=== PATIENT | female | born 1935 | race Two or more races ===

== ENCOUNTER 2019-06-17 23:27 | Inpatient (IN) | payer OTHER, MEDICAID ==
[~2019-06-17] VITALS: Ht 147.3 cm; Wt 47.6 kg
[2019-06-18 00:23] LABS: Basophils # (auto) 0 10 ^3/uL (0-0.2); Basophils % (auto) 0.9 % (0.0-2.0); Eosinophils # (auto) 0.1 10 ^3/uL (0-0.8); Eosinophils % (auto) 3.1 % (0.0-7.0); Hematocrit 45.8 % (36.0-46.0); Hemoglobin 15.6 g/dL (12.2-16.2); Lymphocytes # (auto) 1.2 10 ^3/uL (0.4-5.4); Lymphocytes % (auto) 29.6 % (10.0-50.0); Mean Corpuscular Hemoglobin 31.7 pg (28.0-32.0); Monocytes # (auto) 0.3 10 ^3/uL (0-1.3); Monocytes % (auto) 7.4 % (0.0-12.0); Neutrophils # (auto) 2.5 10 ^3/uL (1.6-8.6); Nucleated Red Blood Cells % 0.1 %; Platelet Count (auto) 168 10^3/uL (140-450); Red Blood Cells 4.93 10^6/uL (4.0-5.20); Red Cell Distribution Width 13.1 % (11.8-14.3); White Blood Cell 4.2 10^3/uL (4.4-10.8)
[2019-06-18 00:38] LABS: INR 1.01 (0.9-1.15); Partial Thromboplastin Time 26.2 sec (23.64-32.05)
[2019-06-18 00:41] LABS: Albumin 4.4 g/dL (3.4-5.0); BUN/Creatinine Ratio 18.3; Calcium 9.3 mg/dL (8.5-10.1); Potassium 3.9 mmol/L (3.5-5.1)
[2019-06-18 00:46] LABS: Bilirubin, Total 0.7 mg/dL (0.2-1.0); Total Protein 8.4 g/dL (6.4-8.2)
[2019-06-18 01:00] LABS: Urine WBC None Seen /hpf (0 - 5)
[2019-06-18 01:15] LABS: Urine Bacteria FEW /hpf (None Seen); Urine Blood 2+ /uL (Negative); Urine Mucus FEW (None Seen); Urine Specific Gravity 1.021 (1.001-1.035)
[2019-06-18] MEDS ORDERED: ACETAMINOPHEN 500 MG TAB PO PRN (10:00)
[2019-06-18] MEDS ORDERED: SODIUM CHLORIDE 0.9% 1,000 ML IV ONE (10:00)
[2019-06-18] MEDS ORDERED: MORPHINE SULF INJ 2 MG/ML SYRINGE 1ML IV PRN ×2 (10:00)
[2019-06-18] MEDS ORDERED: FAMOTIDINE 20 MG TAB PO SCH (10:00)
[2019-06-18] MEDS ORDERED: ONDANSETRON HCL 4 MG/2 ML VIAL IV PRN (10:00)
[2019-06-18] MEDS ORDERED: NITROGLYCERIN 0.4 MG SL TAB SL PRN (10:00)
[2019-06-18] MEDS ORDERED: HYDROcodone-ACET 5/325MG TAB PO PRN (10:00)
[2019-06-18 10:36] LABS: Cholesterol 211 mg/dL (< 200); HDL Cholesterol 89 mg/dL (40-59); LDL Cholesterol 112 mg/dL (< 100); Triglycerides 96 mg/dL (< 150)
--- NOTE | 2019-06-18 10:45 | NUR ---
PT ADMITTED TO FLOOR FROM E.R.. PT REPORTS NO PAIN AT THIS TIME. PT ORIENTED TO UNIT. CALLED DARON RN TO TRANSLATE, PT CITIZ[place]. DARON REPORTS PT IS A AND 0 X 4, LAST BM 06/16. BED ALRM ON, SIDE RAILS UP X4. BED IN LOWEST LOCKED POSITION. NO REPORT GIVEN FROM E.R.. SANCHES HAS NO STAT LOCK. SANCHES SECURED WITH STAT LOCK. 200 MLS CLEAR YELLOW URINE NOTED. WILL CONTINUE TO MONITOR.
[2019-06-18] MEDS: FAMOTIDINE 20 MG TAB PO SCH ×2 (10:47→14:38)
[2019-06-18 12:00] VITALS: BP 153/79
--- NOTE | 2019-06-18 12:44 | NUR ---
CALLED JERZY, PATIENT DAUGHTER FOR ADMISSION INFORMATION. SHE REPORTS SHE WILL BRING IN LIST OF PATIENT HOME MEDICATIONS.
[2019-06-18 15:03] LABS: Folate (Folic Acid) > 24.00 ng/mL (5.38-24)
[2019-06-18 16:50] VITALS: BP 136/59
--- NOTE | 2019-06-18 17:09 | NUR ---
BILINGUAL ADMINISTRATIVE ASSISTANT REPORTS HR 56 BPM, REASSESSED, HR 67 BPM, PT RESTING IN BED, NO DISTRESS NOTED.
--- NOTE | 2019-06-18 19:30 | NUR ---
Opening Shift Note Assumed care of patient, awake and alert. No S/S of distress/SOB or pain. The bed is locked in the lowest position with the call light within reach. Instructed on POC and to call for assist PRN, will continue to monitor for changes Q1hr and PRN.
--- NOTE | 2019-06-18 21:30 | NUR ---
SCDs APPLIED TO LOWER EXTREMITIES BILATERALLY. PATIENT TOLERATED IT WELL.
[2019-06-18 22:05] VITALS: BP 145/73
[2019-06-19] MEDS ORDERED: PAR20T PO (01:49)
[2019-06-19] MEDS ORDERED: LUBI24CA6 PO (01:49)
[2019-06-19] MEDS ORDERED: CELE200C PO (01:49)
[2019-06-19] MEDS ORDERED: HYDR-4833 PO (01:49)
[2019-06-19] MEDS ORDERED: GABA300C10 PO (01:49)
[2019-06-19] MEDS ORDERED: ATOR10TA PO (01:49)
[2019-06-19] MEDS ORDERED: CARB1TAB44 PO (01:49)
[2019-06-19] MEDS ORDERED: LOSA-39 PO (01:49)
[2019-06-19 04:57] VITALS: BP 145/68
[2019-06-19 09:00] VITALS: BP 138/82
--- NOTE | 2019-06-19 11:50 | NUR ---
DR CEJA SAW PATIENT WITH RN AGRICULTURAL PRODUCE WASHER. NEW ORDERS FOR PHYSICAL THERAPY AND MRI.
[2019-06-19] MEDS ORDERED: LORazepam 2MG/ML-1ML VIAL IV PRN (12:00)
[2019-06-19] MEDS ORDERED: LOSARTAN POTASSIUM 50 MG TAB PO ONE (12:00)
--- NOTE | 2019-06-19 12:10 | NUR ---
CALLED PBX AND PAGED PHYSICAL THERAPY TO PATIENT ROOM.
--- NOTE | 2019-06-19 12:50 | NUR ---
BASELINE SPOKE WITH DAUGHTER ABOUT PATIENT'S BASELINE. DAUGHTER REPORTS PT HAS NO HX OF ALZHEIMER'S OR DEMENTIA AND IS USUALLY NOT CONFUSED AT HOME. DAUGHTER REPORTS PT IS USUALLY ABLE TO WALK AT HOME BY HERSELF WITH NO ASSISTIVE DEVICES.
[2019-06-19 13:00] VITALS: BP 148/64
--- NOTE | 2019-06-19 13:19 | NUR ---
SPOKE WITH [facility], MRI. [facility] REPORTS THEY ARE UNABLE TO DO MRI FOR PATIENT. PT HAS WIRES STILL INSERTED IN NECK FROM PREVIOUS NECK SURGERY. CALLED PBX AND PAGED DR CEJA TO NOTIFY .
--- NOTE | 2019-06-19 16:00 | NUR ---
PHYSICAL THERAPY PT CAME AND WORKED WITH PATIENT. THEY REPORT SHE WALKED WITH WALKER AND,"DID WELL."
[2019-06-19 17:00] VITALS: BP 140/84
--- NOTE | 2019-06-19 19:45 | NUR ---
Opening Shift Note Assumed care of patient, awake and alert. No S/S of distress/SOB or pain. Patient's family is present at bedside. Per family, patient is not at baseline. Per son in law, the patient is usually more talkative and active. Family and patient have both been instructed on POC and to call for assist PRN, will continue to monitor for changes Q1hr and PRN.
--- NOTE | 2019-06-19 21:25 | NUR ---
Patient ambulated to the bathroom with assistance. Patient tolerated ambulation well. patient denies any pain.
[2019-06-19 22:00] VITALS: BP 147/65
[2019-06-20 05:00] VITALS: BP 127/76
[2019-06-20 05:56] LABS: Basophils # (auto) 0 10 ^3/uL (0-0.2); Basophils % (auto) 0.4 % (0.0-2.0); Eosinophils # (auto) 0.1 10 ^3/uL (0-0.8); Eosinophils % (auto) 2.6 % (0.0-7.0); Hematocrit 40.8 % (36.0-46.0); Hemoglobin 14.2 g/dL (12.2-16.2); Lymphocytes # (auto) 1.3 10 ^3/uL (0.4-5.4); Mean Corpuscular Hemoglobin 31.9 pg (28.0-32.0); Mean Corpuscular Hgb Conc. 34.7 g/dL (32.0-36.0); Mean Corpuscular Volume 91.8 fL (80.0-100.0); Monocytes # (auto) 0.4 10 ^3/uL (0-1.3); Monocytes % (auto) 8.6 % (0.0-12.0); Neutrophils % (auto) 61.4 % (37.0-80.0); Nucleated Red Blood Cells % 0.1 %; Platelet Count (auto) 164 10^3/uL (140-450); Red Blood Cells 4.44 10^6/uL (4.0-5.20); Red Cell Distribution Width 12.9 % (11.8-14.3); White Blood Cell 4.9 10^3/uL (4.4-10.8)
[2019-06-20 06:15] LABS: Calcium 8.8 mg/dL (8.5-10.1); Potassium 3.4 mmol/L (3.5-5.1)
[2019-06-20 06:17] LABS: BUN/Creatinine Ratio 29.2
--- NOTE | 2019-06-20 07:30 | NUR ---
Opening shift note Assumed care of patient. Patient lying down with eyes open. A&O x3. Patient appeared slightly confused. Respirations even and non-labored and without distress. IV flushed, patent and intact. Bilateral hand shellfish processing laborer weak, bilateral lower extremities equal push/pull. No slurred speech noted or facial drooping noted. Assisted patient with meal tray, patient independent with feeding without difficulty swallowing. Bed lowered, locked, with side rails up x2. Will continue to monitor.
[2019-06-20] MEDS ORDERED: LOSARTAN POTASSIUM 50 MG TAB PO SCH (10:00)
[2019-06-20] MEDS: FAMOTIDINE 20 MG TAB PO SCH (10:32)
--- NOTE | 2019-06-20 10:50 | NUR ---
PT evaluation ordered.
[2019-06-20 13:00] VITALS: BP 125/57
[2019-06-20] MEDS ORDERED: POTASSIUM CHL 10 Meq TABLET PO ONE (14:00)
--- NOTE | 2019-06-20 14:30 | NUR ---
Alexander catheter dc'd Order to discontinue Alexander catheter. Alexander dc'd with clean technique following deflation of balloon. Patient tolerated well with no complaints of pain. Continue care.
[2019-06-20 14:34] VITALS: BP 139/70
--- NOTE | 2019-06-20 14:38 | NUR ---
assessment Patient is a 83 year old female who is alert and oriented. jj CLARKE translated for us. Per patient prior to admission patient lived home with family and functioned independently. Patient informed me she was to care for her own ADLs. Per patient she will return home to her prior living arrangements post discharge and family will transport her home. Patient has no DME. Patient may benefit from home health for PT and safety and a fww on discharge. I informed patient she has a right to speak to a transition social worker regarding all care. I informed patient she has a right to participate in any and all discharge planning. Patient does not have a POA and advanced directive. I have offered patient information on POA and advanced directives. I informed the patient the advantages and benefits of having an Advanced Directive. Patient verbalized understanding and agreed to discharge plan. Addendum: 06/20/19 at 1440 by Ching MAE Amended: Links added.
--- NOTE | 2019-06-20 17:45 | NUR ---
Discharge instructions given as ordered. Encourage to follow up with PMD as instructed. All questions and concerns addressed. Patient verbalized understanding. Medication reconciliation form completed and copy given to patient. Home medications held in Pharmacy returned to patient. IV removed with catheter intact, pressure dressing applied. Telemetry unit returned to ICU. Patient taken to vehicle via wheelchair with all personal belongings, accompanied by staff and family member. No distress noted at time of departure.
== END 2019-06-20 17:00 | disposition home or self-care (01) | DRG 93 ==
LOC: ER 23:27 → TELE 23:28 → TELE-WESTW 06-18 11:01
PROVIDERS: ADMIT Nurse Practitioner Acute Care; ATTEND Internal Medicine
DX: G92 Toxic encephalopathy (principal); I10 Essential (primary) hypertension; M81.0 Age-related osteoporosis without current pathological fracture; M16.12 Unilateral primary osteoarthritis, left hip; G20 Parkinson's disease; W18.39XA Other fall on same level, initial encounter; Y93.89 Activity, other specified; Y92.89 Other specified places as the place of occurrence of the external cause; Y99.8 Other external cause status; Z95.1 Presence of aortocoronary bypass graft; Z90.710 Acquired absence of both cervix and uterus
CPT/HCPCS: 36415; 70450; 71045; 72192; 80048; 80053; 80061; 81001; 82306; 82607; 82746; 83735; 83880; 84425; 84443; 84484; 85025; 85610; 85730; 93005; 93306; 93886; 97163; 97530; G0378

== ENCOUNTER 2022-12-08 19:17 | Inpatient (IN) | payer OTHER, MEDICAID ==
[~2022-12-08] VITALS: Ht 139.7 cm; Wt 54.0 kg
[~2022-12-08 19:17] MED LIST: ATOR10TA PO; CARB1TAB44 PO; CELE200C PO; GABA-1250 PO; HYDR-4833 PO; LOSA100T58 PO; LUBI24CA6 PO; PAR20T PO
[2022-12-08 20:25] VITALS: PULSE 64; RESP 14; O2SAT 91
[2022-12-08] MEDS ORDERED: ONDANSETRON HCL 4 MG/2 ML VIAL IV ONE (21:00)
[2022-12-08] MEDS ORDERED: DexAMETHasone SOD PHOS 10MG/1ML VIAL INJ IV ONE (21:00)
[2022-12-08] MEDS ORDERED: MORPHINE SULFATE 4 MG/ML SYR/VIAL IV ONE (21:00)
[2022-12-08] MEDS ORDERED: ALBUTEROL SULF 2.5 MG/0.5ML(0.5%) NEB SOLN NEB ONE (21:00)
[2022-12-08 21:35] LABS: Alanine Aminotransferase 35 U/L (7-40); Albumin 4.3 g/dL (3.2-4.8); Alkaline Phosphatase 49 U/L (46-116); Anion Gap 7.1 (5-15); Aspartate Aminotransferase 28 U/L (13-40); BUN/Creatinine Ratio 14.3 (10.0-20.0); Blood Urea Nitrogen 8 mg/dL (9-23); Calcium 8.9 mg/dL (8.5-10.1); Carbon Dioxide 27.9 mmol/L (20-30); Chloride 104 mmol/L (98-107); Glucose 156 mg/dL (74-106); Potassium 3.8 mmol/L (3.5-5.1); Sodium 139 mmol/L (136-145)
[2022-12-08 21:36] LABS: Bilirubin, Total 0.4 mg/dL (0.2-1.0)
[2022-12-08 21:42] LABS: Basophils # (auto) 0 10 ^3/uL (0-0.2); Basophils % (auto) 0.3 % (0.0-2.0); Eosinophils # (auto) 0 10 ^3/uL (0-0.8); Eosinophils % (auto) 0.7 % (0.0-7.0); Hematocrit 39.5 % (36.0-46.0); Hemoglobin 13.5 g/dL (12.2-16.2); Lymphocytes # (auto) 0.7 10 ^3/uL (0.4-5.4); Lymphocytes % (auto) 10.9 % (10.0-50.0); Mean Corpuscular Hemoglobin 31.9 pg (28.0-32.0); Mean Corpuscular Hgb Conc. 34.2 g/dL (32.0-36.0); Mean Corpuscular Volume 93.4 fL (80.0-100.0); Monocytes # (auto) 0.4 10 ^3/uL (0-1.3); Monocytes % (auto) 5.5 % (0.0-12.0); Neutrophils # (auto) 5.5 10 ^3/uL (1.6-8.6); Neutrophils % (auto) 82.6 % (37.0-80.0); Red Blood Cells 4.23 10^6/uL (4.0-5.20); Red Cell Distribution Width 13.1 % (11.8-14.3); White Blood Cell 6.7 10^3/uL (4.4-10.8)
[2022-12-08] MEDS ORDERED: HYDROcodone-ACET 10/325MG TAB PO ONE (23:30)
[2022-12-09] MEDS ORDERED: MORPHINE SULFATE 4 MG/ML SYR/VIAL IV ONE (03:00)
[2022-12-09] MEDS ORDERED: ONDANSETRON HCL 4 MG/2 ML VIAL IV ONE (03:00)
[2022-12-09] MEDS ORDERED: ACETAMINOPHEN 325 MG TAB PO PRN (05:30)
[2022-12-09] MEDS ORDERED: NITROGLYCERIN 0.4 MG SL TAB SL PRN (05:30)
[2022-12-09] MEDS ORDERED: DOCUSATE SOD 100 MG CAP PO PRN (05:30)
[2022-12-09] MEDS ORDERED: MORPHINE SULFATE INJ 2 MG/ml SYRG IV PRN (05:30)
[2022-12-09] MEDS: SODIUM CHLORIDE 0.9% 1,000 ML IV SCH (05:55)
[2022-12-09] MEDS: HYDROcodone-ACET 5/325MG TAB PO PRN ×2 (05:56→17:02)
[2022-12-09] MEDS: ONDANSETRON HCL 4 MG/2 ML VIAL IV PRN ×2 (07:52→14:36)
[2022-12-09] MEDS: MORPHINE SULFATE INJ 2 MG/ml SYRG IV PRN ×3 (07:53→21:01)
[2022-12-09 07:57] LABS: INR 1.04 (0.9-1.15); Prothrombin Time 10.9 sec (9.3-11.8)
[2022-12-09 08:01] LABS: Basophils # (auto) 0 10 ^3/uL (0-0.2); Basophils % (auto) 0.2 % (0.0-2.0); Eosinophils # (auto) 0 10 ^3/uL (0-0.8); Eosinophils % (auto) 0.1 % (0.0-7.0); Hematocrit 39.5 % (36.0-46.0); Hemoglobin 13.4 g/dL (12.2-16.2); Lymphocytes # (auto) 0.6 10 ^3/uL (0.4-5.4); Lymphocytes % (auto) 10.5 % (10.0-50.0); Mean Corpuscular Hemoglobin 31.9 pg (28.0-32.0); Mean Corpuscular Hgb Conc. 33.9 g/dL (32.0-36.0); Mean Corpuscular Volume 94.3 fL (80.0-100.0); Monocytes # (auto) 0.3 10 ^3/uL (0-1.3); Monocytes % (auto) 5.3 % (0.0-12.0); Neutrophils # (auto) 4.6 10 ^3/uL (1.6-8.6); Neutrophils % (auto) 83.9 % (37.0-80.0); Nucleated Red Blood Cells % 0.1 %; Red Blood Cells 4.18 10^6/uL (4.0-5.20); Red Cell Distribution Width 13.4 % (11.8-14.3); White Blood Cell 5.5 10^3/uL (4.4-10.8)
[2022-12-09 08:22] VITALS: PULSE 66; RESP 16; O2SAT 98
[2022-12-09 08:25] LABS: Alanine Aminotransferase 52 U/L (7-40); Alkaline Phosphatase 44 U/L (46-116); Anion Gap 8.3 (5-15); BUN/Creatinine Ratio 11.4 (10.0-20.0); Blood Urea Nitrogen 8 mg/dL (9-23); Carbon Dioxide 25.7 mmol/L (20-30); Chloride 105 mmol/L (98-107); Glucose 160 mg/dL (74-106); Potassium 4.7 mmol/L (3.5-5.1); Sodium 139 mmol/L (136-145)
[2022-12-09 08:27] LABS: Albumin 4.4 g/dL (3.2-4.8); Aspartate Aminotransferase 34 U/L (13-40); Bilirubin, Total 0.5 mg/dL (0.2-1.0); Total Protein 7.2 g/dL (5.7-8.2)
[2022-12-09 08:50] LABS: Urine Bacteria NONE SEEN /hpf (None Seen); Urine Blood 3+ /uL (Negative); Urine Clarity Clear (Clear); Urine Color Yellow (Yellow); Urine Protein, UAD TRACE (Negative); Urine Specific Gravity 1.028 (1.001-1.035); Urine Urobilinogen Normal (Negative); Urine WBC 1 /hpf (0 - 5); Urine pH 5.5 (5.0-8.0)
[2022-12-09] MEDS: ENOXAPARIN SOD 40 MG/0.4 ML SYRINGE SC SCH (10:20)
[2022-12-09 11:23] LABS: COVID19 ANTIGEN SOFIA FIA NEGATIVE (NEGATIVE)
[2022-12-09 16:40] VITALS: BP 134/72; PULSE 65; RESP 16; TEMP 98.7; O2SAT 97
[2022-12-09 17:00] VITALS: BP 134/72; PULSE 65; RESP 16; TEMP 98.7; O2SAT 97
[2022-12-09 19:50] VITALS: PULSE 71; RESP 19; O2SAT 94
[2022-12-09] MEDS: DexAMETHasone SOD PHOS 10MG/1ML VIAL INJ IV SCH (20:52)
[2022-12-09 22:00] VITALS: BP 149/63; PULSE 71; RESP 19; TEMP 99.6; O2SAT 94
[2022-12-10] VITALS (7 sets, daily range): BP systolic 127–150; BP diastolic 64–71; PULSE 71–81; RESP 16–20; TEMP 97–98.8; O2SAT 95–98
[2022-12-10] MEDS: HYDROcodone-ACET 5/325MG TAB PO PRN (02:17)
[2022-12-10] MEDS: MORPHINE SULFATE INJ 2 MG/ml SYRG IV PRN ×2 (06:11→19:57)
[2022-12-10] MEDS: SODIUM CHLORIDE 0.9% 1,000 ML IV SCH ×2 (07:40→14:50)
[2022-12-10] MEDS: ENOXAPARIN SOD 40 MG/0.4 ML SYRINGE SC SCH (10:00)
[2022-12-10 10:58] LABS: Basophils # (auto) 0 10 ^3/uL (0-0.2); Basophils % (auto) 0.1 % (0.0-2.0); Eosinophils # (auto) 0 10 ^3/uL (0-0.8); Hematocrit 36.1 % (36.0-46.0); Hemoglobin 12.1 g/dL (12.2-16.2); Lymphocytes # (auto) 0.7 10 ^3/uL (0.4-5.4); Lymphocytes % (auto) 9.1 % (10.0-50.0); Mean Corpuscular Hemoglobin 31.6 pg (28.0-32.0); Mean Corpuscular Hgb Conc. 33.4 g/dL (32.0-36.0); Mean Corpuscular Volume 94.8 fL (80.0-100.0); Monocytes # (auto) 0.6 10 ^3/uL (0-1.3); Monocytes % (auto) 8.3 % (0.0-12.0); Neutrophils % (auto) 82.5 % (37.0-80.0); Nucleated Red Blood Cells % 0.1 %; Red Blood Cells 3.81 10^6/uL (4.0-5.20); Red Cell Distribution Width 13.3 % (11.8-14.3); White Blood Cell 7.3 10^3/uL (4.4-10.8)
[2022-12-10 10:59] LABS: Alanine Aminotransferase 37 U/L (7-40); Albumin 4.2 g/dL (3.2-4.8); Alkaline Phosphatase 40 U/L (46-116); Anion Gap 6.4 (5-15); Aspartate Aminotransferase 20 U/L (13-40); BUN/Creatinine Ratio 23.7 (10.0-20.0); Blood Urea Nitrogen 14 mg/dL (9-23); Calcium 8.8 mg/dL (8.5-10.1); Carbon Dioxide 27.6 mmol/L (20-30); Chloride 106 mmol/L (98-107); Glucose 159 mg/dL (74-106); Potassium 3.8 mmol/L (3.5-5.1); Sodium 140 mmol/L (136-145)
[2022-12-10 11:00] LABS: Bilirubin, Total 0.6 mg/dL (0.2-1.0); Total Protein 6.7 g/dL (5.7-8.2)
[2022-12-10] MEDS: DexAMETHasone SOD PHOS 10MG/1ML VIAL INJ IV SCH (21:29)
[2022-12-11] VITALS (7 sets, daily range): BP systolic 129–148; BP diastolic 61–72; PULSE 65–79; RESP 11–19; TEMP 97.7–98.6; O2SAT 97–100
[2022-12-11] MEDS: SODIUM CHLORIDE 0.9% 1,000 ML IV SCH (07:30)
[2022-12-11] MEDS: MORPHINE SULFATE INJ 2 MG/ml SYRG IV PRN (08:04)
[2022-12-11] MEDS ORDERED: PROPOFOL 10 MG/ML 20 ML IV ONE (08:41)
[2022-12-11] MEDS ORDERED: KETOROLAC TROMETH 30 MG/ML 1ML VIAL ONE (08:42)
[2022-12-11] MEDS ORDERED: GLYCOPYRROLATE 0.2 MG/ML 1ML VIAL ONE (08:42)
[2022-12-11] MEDS ORDERED: LIDOCAINE 1% (LOCAL ANESTH.) PF 5ml SDV ONE (08:42)
[2022-12-11] MEDS ORDERED: DexAMETHasone SOD PHOS 10MG/1ML VIAL INJ ONE (08:42)
[2022-12-11] MEDS ORDERED: ONDANSETRON HCL 4 MG/2 ML VIAL ONE (08:42)
[2022-12-11] MEDS ORDERED: SODIUM CHLORIDE LOCK 10 ML ONE (08:50)
[2022-12-11] MEDS: ENOXAPARIN SOD 30 MG/0.3 ML SYRINGE SC SCH (09:12)
[2022-12-11] MEDS ORDERED: ceFAZolin 1GM/50ML 100 ML IV ONE (09:15)
[2022-12-11] MEDS ORDERED: HYDROmorphone HCL 2 MG/ML VL/or syr ONE (10:20)
[2022-12-11] MEDS ORDERED: HYDROmorphone HCL 2 MG/ML VL/or syr IV PRN (11:15)
[2022-12-11] MEDS ORDERED: ONDANSETRON HCL 4 MG/2 ML VIAL IV PRN (11:15)
[2022-12-11] MEDS ORDERED: ACETAMINOPHEN IV 1000 MG/100ML (10MG/ML) IV PRN (11:30)
[2022-12-11] MEDS ORDERED: LABETALOL HCL 5 MG/ML 4ML SYRINGE IV PRN (11:30)
[2022-12-11] MEDS: ceFAZolin 1GM/50ML 50 ML IV SCH ×2 (13:35→21:24)
[2022-12-11] MEDS: HYDROcodone-ACET 5/325MG TAB PO PRN (19:57)
[2022-12-11] MEDS: DexAMETHasone SOD PHOS 10MG/1ML VIAL INJ IV SCH (21:25)
[2022-12-12] VITALS (8 sets, daily range): BP systolic 133–149; BP diastolic 55–69; PULSE 69–121; RESP 16–17; TEMP 97.7–98.9; O2SAT 18–99
[2022-12-12] MEDS: SODIUM CHLORIDE 0.9% 1,000 ML IV SCH ×2 (00:10→18:20)
[2022-12-12] MEDS: HYDROcodone-ACET 5/325MG TAB PO PRN ×4 (02:27→20:14)
[2022-12-12] MEDS: ceFAZolin 1GM/50ML 50 ML IV SCH (05:37)
[2022-12-12] MEDS: ENOXAPARIN SOD 30 MG/0.3 ML SYRINGE SC SCH (10:00)
[2022-12-12] MEDS: Ensure HIGH Protein Chocolate 8oz Bottle PO SCH ×2 (14:00→18:18)
[2022-12-12] MEDS: DexAMETHasone SOD PHOS 10MG/1ML VIAL INJ IV SCH (21:16)
[2022-12-13] VITALS (7 sets, daily range): BP systolic 116–157; BP diastolic 40–78; PULSE 82–106; RESP 16–20; TEMP 98.1–98.7; O2SAT 91–99
[2022-12-13] MEDS: Ensure HIGH Protein Chocolate 8oz Bottle PO SCH ×2 (08:00→18:00)
[2022-12-13] MEDS: ENOXAPARIN SOD 30 MG/0.3 ML SYRINGE SC SCH (09:47)
[2022-12-13] MEDS: HYDROcodone-ACET 5/325MG TAB PO PRN (09:54)
[2022-12-13] MEDS: PARoxetine 20 MG TAB PO SCH (11:24)
[2022-12-13] MEDS: CARBIDOPA W LEVODOPA 25/100mg TABLET PO SCH ×2 (11:24→21:15)
[2022-12-13] MEDS: SODIUM CHLORIDE 0.9% 1,000 ML IV SCH (11:25)
[2022-12-13] MEDS: GABAPENTIN 300 MG CAP PO SCH ×2 (11:25→21:15)
[2022-12-13 16:25] LABS: COVID19 ANTIGEN SOFIA FIA NEGATIVE (NEGATIVE)
[2022-12-13] MEDS: LOSARTAN POTASSIUM 50 MG TAB PO SCH (17:48)
[2022-12-13] MEDS: DexAMETHasone SOD PHOS 10MG/1ML VIAL INJ IV SCH (21:11)
[2022-12-13] MEDS: ATORVASTATIN 20 MG TAB PO SCH (21:15)
[2022-12-14] VITALS (7 sets, daily range): BP systolic 107–130; BP diastolic 28–57; PULSE 76–102; RESP 18–19; TEMP 37.3; O2SAT 92–100
[2022-12-14] MEDS: SODIUM CHLORIDE 0.9% 1,000 ML IV SCH ×2 (02:02→18:25)
[2022-12-14] MEDS: ENOXAPARIN SOD 30 MG/0.3 ML SYRINGE SC SCH (10:16)
[2022-12-14] MEDS: PARoxetine 20 MG TAB PO SCH (10:16)
[2022-12-14] MEDS: GABAPENTIN 300 MG CAP PO SCH ×2 (10:16→21:12)
[2022-12-14] MEDS: CARBIDOPA W LEVODOPA 25/100mg TABLET PO SCH ×2 (10:16→21:12)
[2022-12-14] MEDS: LOSARTAN POTASSIUM 50 MG TAB PO SCH (10:16)
[2022-12-14] MEDS: Ensure HIGH Protein Chocolate 8oz Bottle PO SCH ×2 (10:17→18:29)
[2022-12-14] MEDS: HYDROcodone-ACET 5/325MG TAB PO PRN (18:23)
[2022-12-14] MEDS: DexAMETHasone SOD PHOS 10MG/1ML VIAL INJ IV SCH (21:11)
[2022-12-14] MEDS: ATORVASTATIN 20 MG TAB PO SCH (21:12)
[2022-12-15 04:59] VITALS: BP 137/60; PULSE 74; RESP 17; TEMP 98.1; O2SAT 97
[2022-12-15 08:00] VITALS: PULSE 82; RESP 16
[2022-12-15] MEDS: Ensure HIGH Protein Chocolate 8oz Bottle PO SCH ×2 (08:00→18:00)
[2022-12-15 09:00] VITALS: BP 127/53; PULSE 101; RESP 17; TEMP 98.6; O2SAT 100
[2022-12-15] MEDS: MORPHINE SULFATE INJ 2 MG/ml SYRG IV PRN (09:49)
[2022-12-15] MEDS: PARoxetine 20 MG TAB PO SCH (09:49)
[2022-12-15] MEDS: GABAPENTIN 300 MG CAP PO SCH (09:49)
[2022-12-15] MEDS: ENOXAPARIN SOD 30 MG/0.3 ML SYRINGE SC SCH (09:49)
[2022-12-15] MEDS: CARBIDOPA W LEVODOPA 25/100mg TABLET PO SCH (09:49)
[2022-12-15] MEDS: LOSARTAN POTASSIUM 50 MG TAB PO SCH (09:50)
[2022-12-15] MEDS: SODIUM CHLORIDE 0.9% 1,000 ML IV SCH (11:30)
[2022-12-15 13:00] VITALS: BP 116/48; PULSE 78; RESP 18; TEMP 98.3; O2SAT 97
[2022-12-15 17:00] VITALS: BP 117/52; PULSE 89; RESP 17; TEMP 98.6; O2SAT 100
[2022-12-15 18:33] VITALS: RESP 16
== END 2022-12-15 18:30 | DRG 480 ==
LOC: EDBD 19:17 → ER 19:29 → TELE 12-09 05:22 → TELE-CENTR 12-09 16:41
PROVIDERS: ADMIT Nurse Practitioner Family; ATTEND Family Medicine
PROC: 0PSJXZZ Reposition Left Radius, External Approach (ICD-10-PCS; 2022-12-11)
PROC: 0QS704Z Reposition Left Upper Femur with Internal Fixation Device, Open Approach (ICD-10-PCS; principal; 2022-12-11 09:32)
DX: S72.142A Displaced intertrochanteric fracture of left femur, initial encounter for closed fracture (principal); I21.A1 Myocardial infarction type 2; E44.0 Moderate protein-calorie malnutrition; S52.502A Unspecified fracture of the lower end of left radius, initial encounter for closed fracture; F02.83 Dementia in other diseases classified elsewhere, unspecified severity, with mood disturbance; E78.00 Pure hypercholesterolemia, unspecified; I10 Essential (primary) hypertension; Z20.822 Contact with and (suspected) exposure to COVID-19; W18.39XA Other fall on same level, initial encounter; R31.9 Hematuria, unspecified; G89.29 Other chronic pain; G62.9 Polyneuropathy, unspecified; F32.A Depression, unspecified; G20 Parkinson's disease; Z95.1 Presence of aortocoronary bypass graft; Z90.710 Acquired absence of both cervix and uterus; Y93.89 Activity, other specified; Y92.89 Other specified places as the place of occurrence of the external cause; Y99.8 Other external cause status; Z68.23 Body mass index [BMI] 23.0-23.9, adult
CPT/HCPCS: 36415; 70450; 71045; 72125; 72192; 73110; 73501; 76000; 80053; 81001; 84484; 85025; 85610; 86850; 86900; 86901; 87426; 93005; 93306; 96374; 96375; 97110; 97116; 97163; 97530; A4565; G0378; J0131; J0690; J1100; J1885; J2405; J2704; J3490

== ENCOUNTER 2024-06-11 18:22 | Emergency (ER) | payer OTHER, MEDICAID ==
[~2024-06-11] VITALS: Ht 144.8 cm; Wt 44.6 kg
[~2024-06-11 18:22] MED LIST changes: +LOSA-535 PO; -LOSA100T58 PO; -LUBI24CA6 PO; +LUBI24CA7 PO
--- NOTE | 2024-06-11 18:41 | ED.PDOC ---
History of Present Illness HPI Comments This is an 88-year-old female who comes in with chief complaint of right shoulder pain. The patient was walking at home and tripped and fell. The patient landed on the right shoulder and right arm. She has no other complaints at this time. There was no loss of consciousness or syncopal episode. The patient was accompanied in the emergency department's by the family. Time Seen by MD: 18:26 Reviewed Notes: Nurses Notes, Medications, Allergies (No allergies to medications) Allergies: Coded Allergies: NO KNOWN ALLERGIES (Unverified , 06/18/19) Home Meds Reported Medications Losartan Potassium (Losartan Potassium) 100 Mg Tab, 1 TAB PO DAILY, #30 TAB 5 Refills 06/19/19 Hydrocodone-Acetaminophen ([place] 5/325MG) 1 Tab Tb, 1 TAB PO TID, #90 TAB 06/19/19 Atorvastatin Calcium (Lipitor) 10 Mg Tab, 1 TAB PO DAILY, #30 TAB 5 Refills 06/19/19 Lubiprostone (Amitiza) 24 Mcg Cap, 1 CAP PO BID, #60 CAP 5 Refills 06/19/19 Paroxetine (PAXIL TABLET) 20 Mg Tb, 1 TAB PO HS, #30 TAB 5 Refills 06/19/19 Carbidopa (Carbidopa) 25 Mg Tab, 25 MG PO BID, TAB 06/19/19 Celecoxib (Celebrex) 200 Mg Cap, 1 CAP PO BID, #30 CAP 2 Refills 06/19/19 Gabapentin (Gabapentin) 300 Mg Cap, 1 CAP PO BID, #90 CAP 5 Refills 06/19/19 Information Source: Patient, Relative, Emergency Med Personnel Mode of Arrival: EMS Severity: Moderate (Right shoulder pain) Timing: Hours Duration: Since onset Prehospital treatment: None Location: Right shoulder and humeral pain Past Medical History PAST MEDICAL HISTORY: Arthritis, High Lipids Surgical History: CABG, Cholecystectomy, Hysterectomy Surgical History (Other): Right hip surgery, back surgery, cataract surgery, neck surgery FLASH OVEN OPERATOR History: No Pertinent FLASH OVEN OPERATOR History Family History Family History: Unknown Social History Smoker: Non-Smoker Alcohol: Denies ETOH Use Drugs: Denies Drug Use Lives In: Home Constitutional: denies: chills, diaphoresis, fatigue, fever, malaise, sweats, weakness, others EENTM: denies: blurred vision, double vision, ear bleeding, ear discharge, ear drainage, ear pain, ear ringing, eye pain, eye redness, hearing loss, mouth pain, mouth swelling, nasal discharge, nose bleeding, nose congestion, nose pain, photophobia, tearing, throat pain, throat swelling, voice changes, others Respiratory: denies: cough, hemoptysis, orthopnea, SOB at rest, shortness of breath, SOB with excertion, stridor, wheezing, others Cardiovascular: denies: chest pain, dizzy spells, diaphoresis, Dyspnea on exertion, edema, irregular heart beat, left arm pain, lightheadedness, palpitations, PND, syncope, others Gastrointestinal: denies: abdomen distended, abdominal pain, blood streaked bowels, constipated, diarrhea, dysphagia, difficulty swallowing, hematemesis, melena, nausea, poor appetite, poor fluid intake, rectal bleeding, rectal pain, vomiting, others Genitourinary: denies: abnormal vagina bleeding, burning, dyspareunia, dysuria, flank pain, frequency, hematuria, incontinence, pain, , vagina discharge, urgency, others Neurological: denies: dizziness, fainting, headache, left sided numbness, left sided weakness, numbness, paresthesia, pre-existing deficit, right sided numbness, right sided weakness, seizure, speech problems, tingling, tremors, weakness, others Musculoskeletal: reports: others (Right shoulder pain); denies: back pain, gout, joint pain, joint swelling, muscle pain, muscle stiffness, neck pain Integumetry: denies: bruises, change in color, change in hair/nails, dryness, laceration, lesions, lumps, rash, wounds, others Allergic/Immunocompromised: denies: Difficulty Healing, Frequent Infections, Hives, Itching, others Hematologic/Lymphatic: denies: anemia, blood clots, easy bleeding, easy bruising, swollen glands, others Endocrine: denies: excessive hunger, excessive sweating, excessive thirst, excessive urination, flushing, intolerance to cold, intolerance to heat, unexplained weight gain, unexplained weight loss, others Psychiatric: denies: anxiety, bipolar disorder, depression, hopeless, panic disorder, schizophrenia, sleepless, suicidal, others Physical Exam General Appearance: Moderate Distress HEENT: Normal ENT Inspection, Pharynx Normal, TMs Normal Neck: Full Range of Motion, Non-Tender, Normal, Normal Inspection Respiratory: Chest Non-Tender, Lungs Clear, No Accessory Muscle Use, No Respiratory Distress, Normal Breath Sounds Cardiovascular: No Edema, No JVD, No Murmur, No Gallop, Normal Peripheral Pulses, Regular Rate/Rhythm Breast Exam: Deferred Gastrointestinal: No Organomegaly, Non Tender, No Pulsatile Mass, Normal Bowel Sounds, Soft Genitalia: Deferred Pelvic: Deferred Rectal: Deferred Extremities: Decreased range of motion, Normal capillary refill, No pedal edema, Tender (Right shoulder pain with limited range of motion) Musculoskeletal : Location: Right Extremity Location: Shoulder Apperance: Limited ROM, Tenderness: Moderate Neurologic: Alert, auto transmission mechanic II-XII nml as Tested, No Motor Deficits, Normal Affect, Normal Mood, No Sensory Deficits Cerebellar Function: Normal Reflexes: Normal Skin: Dry, Normal Color, Warm Lymphatic: No Adenopathy Was a procedure done? Was a procedure done?: No Differential Dx Considerations may include: Fracture, strain, contusion X-Ray, Labs, Meds, VS Vital Signs Date Time Temp Pulse Resp B/P (MAP) Pulse Ox O2 Delivery O2 Flow Rate FiO2 06/11/24 18:50 97.6 70 20 145/64 (91) 94 X-ray of the right shoulder shows: FINDINGS/IMPRESSION: There is no evidence of acute fracture or dislocation. Anterior fusion lower cervical spine Possible calcified hilar lymph node Calcification in the soft tissues adjacent to the greater tuberosity of the humerus may represent calcified tendinitis. Questionable nondisplaced fracture through the humeral head. The visualized joint space is well maintained. The alignment is anatomical. There is no radiopaque foreign body. The patient was placed in a sling The patient was given [place] here in the emergency department's The patient will follow up with the primary care doctor The patient will return to the emergency department's condition worsens. Images Reviewed?: Images reviewed and evaluated by me Time of 1ST Reevaluation: 18:40 Reevaluation 1ST: Unchanged Patient Education/Counseling: Diagnosis, Treatment, Prognosis, Need For Follow Up Family Education/Counseling: Diagnosis, Treatment, Prognosis, Need For Follow Up Departure 1 Departure Time of Disposition: 19:53 Impression: Primary Impression: Contusion of right shoulder Qualified Codes: S40.011A - Contusion of right shoulder, initial encounter Additional Impression: History of fall Disposition: HOME / SELF CARE / HOMELESS Condition: Fair Discharged With: Self Critical Care Note Critical Care Time?: No Stability Stability form required: No Heart Score Heart Score: Heart Score Response (Comments) Value History N/A 0 EKG N/A 0 Age N/A 0 Risk Factors N/A 0 Troponin N/A 0 Total 0 RUPERT POWELL MD Jun 11, 2024 18:41
--- NOTE | 2024-06-11 19:44 | DVH ---
CLINICAL INDICATION: fall TECHNIQUE: 4 radiographic views of the right shoulder were obtained. Comparison: None FINDINGS/IMPRESSION: There is no evidence of acute fracture or dislocation. Anterior fusion lower cervical spine Possible calcified hilar lymph node Calcification in the soft tissues adjacent to the greater tuberosity of the humerus may represent antonio cified tendinitis. Questionable nondisplaced fracture through the humeral head. The visualized joint space is well maintained. The alignment is anatomical. There is no radiopaque foreign body.
[2024-06-11] MEDS ORDERED: HYDR-4902 PO (19:55)
[2024-06-11 21:50] VITALS: BP 144/74; PULSE 57; RESP 20; TEMP 98.3; O2SAT 97
== END 2024-06-11 21:50 | disposition home or self-care (01) ==
LOC: ER 18:22 → EDBD 18:22 → ER 21:50
DX: S40.011A Contusion of right shoulder, initial encounter (principal); M19.90 Unspecified osteoarthritis, unspecified site; E78.5 Hyperlipidemia, unspecified; Z90.710 Acquired absence of both cervix and uterus; Z90.49 Acquired absence of other specified parts of digestive tract; Z79.899 Other long term (current) drug therapy; Z98.890 Other specified postprocedural states; Z95.1 Presence of aortocoronary bypass graft; W01.0XXA Fall on same level from slipping, tripping and stumbling without subsequent striking against object, initial encounter; Y93.89 Activity, other specified; Y92.89 Other specified places as the place of occurrence of the external cause; Y99.8 Other external cause status
CPT/HCPCS: 73030